=== PATIENT | female | born 1980 | race Caucasian/White ===

== ENCOUNTER 2017-10-28 14:46 | Emergency (ER) | payer BC ==
[2017-10-28 15:24] LABS: #Basophils 0.1 thou/uL (0.0-0.2); #Eosinphils 0.4 thou/uL (0.0-0.7); #Lymphocytes 3.2 thou/uL (1.20-3.40); #Monocytes 0.3 thou/uL (0.11-0.59); #Neutrophils 8.1 thou/uL (1.40-6.50); %Basophils 0.8 % (0.0-1.0); %Eosinophils 3.2 % (0.0-10.0); %Lymphocytes 26.2 % (21.0-51.0); %Monocytes 2.7 % (0.0-10.0); Hemoglobin 13.7 g/dL (12.0-16.0); Mean Corpuscular HGB CONC 33.1 g/dL (32.0-36.0); Mean Corpuscular Hemoglobin 27.5 pg (27.0-31.0); Mean Platelet Volume 6.9 fL (7.4-10.4); Platelet Count 316 thou/uL (130-400); RBC Distribution Width 11.6 % (11.5-14.5); White Blood Cell (WBC) Count 12.1 thou/uL (4.8-10.8)
[2017-10-28 15:39] LABS: ALT (SGPT) 31 U/L (8-55); AST (SGOT) 14 U/L (5-34); Albumin 3.9 g/dL (3.5-5.0); Alkaline Phosphatase 80 U/L (40-150); Anion Gap 12 mmol/L (10-20); BUN (Urea Nitrogen) 11 mg/dL (7.0-18.7); Bilirubin, Total 0.2 mg/dL (0.2-1.2); Calc. Creatinine Clearance 0 mL/min (70-130); Calcium 9.2 mg/dL (7.8-10.44); Carbon Dioxide 26 mmol/L (22-29); Chloride 105 mmol/L (98-107); Estimated GFR-MDRD Greater than 90; Globulin 2.9 g/dL (2.4-3.5); Glucose 142 mg/dL (70-105); Lipase 14 U/L (8-78); Potassium 3.4 mmol/L (3.5-5.1); Protein, Total 6.8 g/dL (6.0-8.3); Sodium 140 mmol/L (136-145)
[2017-10-28 16:40] LABS: Bilirubin Negative (Negative); Blood, Urine Moderate (Negative); Clarity Hazy (Clear); Glucose, Urine (Dipstick) Negative (Negative); Leukocyte Negative (Negative); Nitrite Negative (Negative); Protein, Urine (Dipstick) Negative (Neg-Trace); Specific Gravity, Urine 1.015 (1.005-1.030); Urobilinogen 0.2 mg/dL (0.2-1.0)
[2017-10-28 16:41] LABS: Pregnancy Test - Urine (BHCG) Negative (Negative); Pregu Control Background? CLEAR/WHITE (CLR/WHITE); Pregu Control Bar Appear? YES (CONTROL BAR); Specific Gravity 1.015 (1.002-1.036)
[2017-10-28 16:44] LABS: Bacteria/HPF Rare-Few HPF (None Seen); WBC/HPF None Seen HPF (0-3)
[2017-10-28] MEDS ORDERED: Ketorolac Tromethamine 30 MG/ML VIAL ONE (17:22)
--- NOTE | 2017-10-28 17:40 | CT ---
CT OF ABDOMEN AND PELVIS PERFORMED WITHOUT CONTRAST ENHANCEMENT: 10/28/17 HISTORY: Abdominal pain. COMPARISON: 03/11/16, 02/01/16 studies. The lung bases are clear. The liver and spleen as well as pancreas regions are unremarkable given the limitations of a noncontr ast study. Gallbladder has been removed. Right and left adrenal glands and right and left kidneys are normal in size. There is no significant periaortic or mesenteric adenopathy. CT OF PELVIS PERFORMED WITH CONTRAST ENHANCEMENT: There is sigmoid diverticulosis noted. No inflammatory change. No evidence of adenopathy, mass or armando e fluid. IMPRESSION: No acute abnormalities of the abdomen or pelvis. Sigmoid diverticulosis. POS: [facility]
== END 2017-10-28 17:05 | disposition home or self-care (01) ==
LOC: SCSER 14:46
DX: R10.32 Left lower quadrant pain (principal); E78.5 Hyperlipidemia, unspecified; F41.9 Anxiety disorder, unspecified; F17.210 Nicotine dependence, cigarettes, uncomplicated; Z79.899 Other long term (current) drug therapy; Z79.84 Long term (current) use of oral hypoglycemic drugs
CPT/HCPCS: 74176; 80053; 81003; 81015; 81025; 83690; 85025; 96372; J1885

== ENCOUNTER 2017-12-25 21:44 | Inpatient (IN) | payer BC ==
[2017-12-25 23:07] LABS: Hemoglobin 14.6 g/dL (12.0-16.0); Mean Corpuscular HGB CONC 33.8 g/dL (32.0-36.0); Mean Corpuscular Volume 82.7 fl (81.0-99.0); Mean Platelet Volume 6.8 fL (7.4-10.4); Platelet Count 348 thou/uL (130-400); RBC Distribution Width 11.8 % (11.5-14.5); Red Blood Cell (RBC) Count 5.21 mill/uL (4.20-5.40); White Blood Cell (WBC) Count 11.1 thou/uL (4.8-10.8)
[2017-12-25 23:10] LABS: INR-International Normal Ratio 0.9; Prothrombin Time 12.6 SEC (12.0-14.7)
[2017-12-25 23:11] LABS: BHCG - Serum Negative (NEGATIVE); PTT 27.5 SEC (22.9-36.1); Pregs Control Background? CLEAR/WHITE (CLR/WHITE); Pregs Control Bar Appear? YES (CONTROL BAR)
[2017-12-25 23:15] LABS: Band 3 % (5-11); Eosinophils 3 % (0-10); Lymphocytes 26 % (21-51); MDiff Complete? YES; Monocytes 2 % (0-10); Neutrophil 66 % (42-75)
[2017-12-25 23:20] LABS: ALT (SGPT) 27 U/L (8-55); AST (SGOT) 16 U/L (5-34); Albumin 4.2 g/dL (3.5-5.0); Alkaline Phosphatase 70 U/L (40-150); Anion Gap 15 mmol/L (10-20); BUN (Urea Nitrogen) 8 mg/dL (7.0-18.7); Bilirubin, Total 0.2 mg/dL (0.2-1.2); Calc. Creatinine Clearance 0 mL/min (70-130); Calcium 9.7 mg/dL (7.8-10.44); Carbon Dioxide 24 mmol/L (22-29); Chloride 105 mmol/L (98-107); Estimated GFR-MDRD Greater than 90; Globulin 3.2 g/dL (2.4-3.5); Glucose 111 mg/dL (70-105); Protein, Total 7.4 g/dL (6.0-8.3); Sodium 140 mmol/L (136-145)
[2017-12-26 02:47] VITALS: BMI 39.3
[2017-12-26] MEDS ORDERED: Ondansetron ODT 4 MG TAB SL PRN (03:03)
[2017-12-26] MEDS ORDERED: Ondansetron HCl/PF 4 MG/2 ML Vial IVP PRN (03:03)
[2017-12-26] MEDS ORDERED: Sodium Chloride 0.9% 1,000 ML IV SCH (03:15)
[2017-12-26] MEDS ORDERED: Prevnar 13-Val Conj/PF 0.5 ML SYRINGE IM ONE ×2 (03:15→09:00)
[2017-12-26] MEDS: metroNIDAZOLE 500 MG in Premix Bag 1 BAG IVPB SCH ×2 (03:30→09:12)
[2017-12-26] MEDS: Sodium Chloride 0.9% 1,000 ML IV SCH ×5 (03:45→23:45)
[2017-12-26] MEDS ORDERED: Ondansetron ODT 4 MG TAB PO PRN (03:45)
--- NOTE | 2017-12-26 03:54 | PDOC.FPRHP ---
- History of Present Illness Chief Complaint: Diverticulitis History of Present Illness: 37 yo F w/hx of insulin resistance and previous diverticulitis presents as a direct admit from [facility] ED with concern for diverticulitis. She was seen in the ED for complaint of bloody diarrhea for a period of 4 days with associated abdominal pain. She noted bright red bloody diarrhea on that turned into more formed, but still loose bloody stools on Tuesday - Tuesday. She has had associated cramping abdominal pain since onset of diarrhea. She describes the pain to be RLQ and suprapubic. She denies associated fever or chills. She denies recent travel or change of diet. She states that she has had multiple episodes of diverticulitis in the past and this is similar to before. In [facility] ED she received 1L NS, flagyl, and levaquin - Allergies/Adverse Reactions Allergies Allergy/AdvReac Type Severity Reaction Status Date / Time amoxicillin Allergy Mild Hives Verified 12/26/17 02:47 Penicillins Allergy Mild Hives Verified 12/26/17 02:47 - Home Medications Medication Instructions Recorded Confirmed Type Atorvastatin Calcium [Lipitor] 10 mg PO DAILY 03/12/16 12/26/17 History Cellothyl [Citrucel Tablet] 500 mg PO DAILY 03/12/16 12/26/17 History Lisdexamfetamine Dimesylate 60 mg PO QAM 03/12/16 12/26/17 History [Vyvanse] metFORMIN [Glucophage] 500 mg PO QPM-WM 03/12/16 12/26/17 History Diclofenac Sodium [Voltaren] 50 mg PO BID 12/26/17 12/26/17 History - History PMHx: Hx of diverticulitis Insulin resistance Plantar fasciitis HLD PSHx: Lap genoveva C section x2 FHx: Maternal CVA Social: Denies tobacco, etoh, recreational drug use - Review of Systems General: denies: fever/chills, weight/appetite/sleep changes Eyes: denies: vision changes ENT: denies: nasal congestion Respiratory: denies: cough, congestion, shortness of breath Cardiovascular: denies: chest pain, palpitation Gastrointestinal: reports: nausea, diarrhea, abdominal pain, GI bleeding ( Bloody diarrhea). denies: vomiting Genitourinary: denies: dysuria Skin: denies: rashes Musculoskeletal: denies: pain, tenderness Neurological: denies: numbness, syncope Psychological: denies: anxiety, depression - Vital signs BP: 129/66 HR: 91 RR: 18 Tmax: 99.2 Pox: 97% on RA Wt: 109 kg - Physical Exam Constitutional: NAD, awake, alert and oriented HEENT: normocephalic and atraumatic, EOMI, no scleral icterus Neck: supple, FROM, trachea midline Chest: no-tender to palpation, no lesions Heart: RRR, normal S1/S2, no murmurs/rubs/gallops Lungs: CTAB, no respiratory distress, good air movement Abdomen: soft, bowel sounds present, no masses/distention -Abdomen: TTP RLQ and LLQ, most tender LLQ Musculoskeletal: normal structure, normal tone Neurological: no focal deficit, CN II-XII intact Skin: no rash/lesions, good turgor Heme/Lymphatic: no purpura, no petechia Psychiatric: normal mood and affect FMR H&P: Results - Labs Result Diagrams: 12/25/17 23:00 12/25/17 23:00 Lab results: WBC 11.1 thou/uL (4.8-10.8) H 12/25/17 23:00 Hgb 14.6 g/dL (12.0-16.0) 12/25/17 23:00 Hct 43.1 % (36.0-47.0) 12/25/17 23:00 MCV 82.7 fl (81.0-99.0) 12/25/17 23:00 Plt Count 348 thou/uL (130-400) 12/25/17 23:00 Band Neuts % (Manual) 3 % (5-11) L 12/25/17 23:00 Sodium 140 mmol/L (136-145) 12/25/17 23:00 Potassium 4.0 mmol/L (3.5-5.1) 12/25/17 23:00 Chloride 105 mmol/L (98-107) 12/25/17 23:00 Carbon Dioxide 24 mmol/L (22-29) 12/25/17 23:00 BUN 8 mg/dL (7.0-18.7) 12/25/17 23:00 Creatinine 0.66 mg/dL (0.6-1.1) 12/25/17 23:00 Glucose 111 mg/dL (70-105) H 12/25/17 23:00 Calcium 9.7 mg/dL (7.8-10.44) 12/25/17 23:00 Total Bilirubin 0.2 mg/dL (0.2-1.2) 12/25/17 23:00 AST 16 U/L (5-34) 12/25/17 23:00 ALT 27 U/L (8-55) 12/25/17 23:00 Alkaline Phosphatase 70 U/L (40-150) 12/25/17 23:00 Serum Total Protein 7.4 g/dL (6.0-8.3) 12/25/17 23:00 Albumin 4.2 g/dL (3.5-5.0) 12/25/17 23:00 - Radiology Interpretation CT scan - abdomen Status: pending FMR H&P: A/P - Problem List (1) Acute diverticulitis Current Visit: Yes Status: Acute Priority: High Code(s): K57.92 - DVTRCLI OF INTEST, PART UNSP, W/O PERF OR ABSCESS W/O BLEED (2) Blood in stool Current Visit: Yes Status: Acute Code(s): K92.1 - MELENA (3) Insulin resistance Current Visit: No Status: Chronic Priority: Low Code(s): E88.81 - METABOLIC SYNDROME (4) Hyperlipidemia Current Visit: No Status: Chronic Priority: Medium Code(s): E78.5 - HYPERLIPIDEMIA, UNSPECIFIED Qualifiers: Hyperlipidemia type: unspecified Qualified Code(s): E78.5 - Hyperlipidemia , unspecified - Plan Acute diverticulitis - Most likely cause of bloody stools - Continue levaquin and flagyl - IVF at maintenance rate - Advance diet as tolerated - WBC 11.1 Blood in stool - most likely 2/2 diverticulitis - FOBT, O&P, fecal lactoferrin - Hb 14.6, recheck in am - hold NSAIDs Insulin resistance - low carb diet - continue home metformin HLD - home statin PPx - SCD Code Full Diet Clears, advance as tolerated Dispo: Pt is currently stable. Continue IVF and IV abx until she is able to tolerate PO. Likely length of stay 24-48 hours. FMR H&P: Upper Level - Pertinent history 37 year old white female with a past medical history of diverticulitis presents with rectal bleeding and abdominal cramping. Symptoms started on . She reports periumbilical crampy pain and multiple episodes of diarrhea which eventually progressed to bright red blood per rectum. She now has RLQ and LLQ pain. Other associated symptoms include nausea. Denies fever, chills, vomiting. Tolerating po. She was seen by Dr. Britt at the [facility] ER and directly admitted to [facility]. She received Flagyl, Levaquin, and 1L NS in the ER. - Pertinent findings Vital Signs BP 126/76 HR 93 RR 16 Temp 98.2 O2 sat 92% on room air General: NAD, AAOx4 Eyes: EOMI, PERRLA, nonicteric ENT: MMM. Oropharynx clear CV: RRR. No m/r/g. Pulses full and equal in all 4 extremities. Capillary refill less than 2 seconds Resp: CTA-B. No wheezing, rales, or rhonchi. Nonlabored Abdomen: Tender LLQ and RLQ. Nondistended. No guarding. Ext: No edema. Equal movements bilaterally Skin: No rash or ulcer. No palpable lesions Neuro: CNII-XII intact. No focal deficits Psych: Mood and affect appropriate. Judgement and insight intact. - Plan Date/Time: 12/26/17 9094 I, Chay Dumont DO, have evaluated this patient and agree with findings/plan as outlined by internet marketing strategist resident. Pertinent changes/additions are listed here. A/P: 1) Diverticulitis - Admit to medical floor. Continue IV fluids and antibiotics. Clear liquid diet advance as tolerated 2) DM2 - Home meds 3) HLD - home meds 4) Code status - Full 5) Activity - Ad amaris Attending Addendum - Attending Addendum Date/Time: 12/26/17 1101 I personally evaluated the patient and discussed the management with Tim Trammell, and Mara I agree with the History, Examination, Assessment and Plan documented above with any addition or exceptions noted below. 37 yo female with history of diverticuosis presents with acute diverticulitis Currently pain free. Tolerating clear diet. VS, labs, and imaging reviewed. NAD on exam. RRR. No murmurs. CTA bilaterally. Abdomen soft. No rebound. Mild tenderness to LLQ. BS present. 1. Acute diverticulitis: This is patient's 3rd episode. Continue IV antibiotics throughout the day. If able to tolerate orals with switch tomorrow. Monitor symptoms. CT reviewed. Will need outpatient follow up for c-scope with GI. Kimmie
--- NOTE | 2017-12-26 08:12 | CT ---
PRELIMINARY REPORT/[facility]/EMERGENTY AFTER-HOURS PROCEDURE CT Abdomen and Pelvis Without Intravenous Contrast CLINICAL HISTORY: 37 years old, female; Pain; Abdominal pain; Localized; Right lower quadrant (rlq); Patient HX: Lower abd pain. Multiple episodes of diarrhea with some blood. Hs of genoveva, 2 csxn, diverticulitis, neg ser um preg test. Pt states possible rxn to iv contrast TECHNIQUE: Axial computed tomography images of the abdomen and pelvis without intravenous contrast. All CT scans at this facility use one or more dose reduction techniques, viz.: automated exposure control; ma/kV adjustment per patient size (including targeted exams where dose is matched to indication; i.e. head) ; or iterative reconstruction technique. Coronal reformatted images were created and reviewed. COMPARISON: No relevant prior studies available. FINDINGS: Lung bases: Normal. No mass. No consolidation. ABDOMEN: Liver: Normal. Gallbladder and bile ducts: Gallbladder is surgically absent. Pancreas: Normal. Spleen: Normal. Adrenals: Normal. Kidneys and ureters: Normal. Stomach and bowel: Scattered colonic diverticulosis, with acute diverticulitis involving the distal d escending colon, where there is mild wall thickening and adjacent associated inflammatory stranding. Appendix: Appendix is normal. PELVIS: Bladder: Normal. Reproductive: Normal as visualized. ABDOMEN and PELVIS: Intraperitoneal space: Normal. No free air. No significant fluid collection. Bones/joints: No acute fracture. No dislocation. Soft tissues: Normal. Vasculature: Phleboliths within the pelvis. No abdominal aortic aneurysm. Lymph nodes: Normal. IMPRESSION: 1. Scattered colonic diverticulosis, with acute diverticulitis involving the distal descending colon, where there is mild wall thickening and adjacent associated inflammatory stranding. No evidence of p erforation or abscess. 2. Incidental/non-acute findings are described above. Thank you for allowing us to participate in the care of your patient. Dictated and Authenticated by: Gold Phillip MD 12/26/2017 12:32 AM Central Time ([place] & [place]) FINAL REPORT ABDOMEN CT WITHOUT CONTRAST PELVIC CT WIHTOUT CONTRAST: COMPARISON: 10/28/17. HISTORY: Right lower quadrant tenderness. Pain. Hematochezia. FINDINGS: This report is in agreement with the preliminary report by [facility]. No evidence of obstructed uropathy. Normal-caliber appendix. Mild mucosal thickening with pericolonic at stranding involving the distal descending colon. The possibility of diverticulitis is raised. No evidence of abscess or perforati on. POS: [facility]
[2017-12-26] MEDS ORDERED: HYDROcodone/Acetaminophen 5/325 mg Tablet PO PRN (08:13)
[2017-12-26] MEDS ORDERED: Morphine 4 MG/ML VIAL IV PRN (08:18)
[2017-12-26] MEDS: HYDROcodone/Acetaminophen 5/325 mg Tablet PO PRN ×2 (08:25→15:07)
[2017-12-26] MEDS: Atorvastatin Calcium 10 MG TAB PO SCH (08:49)
[2017-12-26] MEDS: Citrucel 500 MG TAB PO SCH (08:50)
[2017-12-26] MEDS ORDERED: Enoxaparin Sodium 40 MG/0.4 ML SYRINGE SC SCH (09:00)
[2017-12-26] MEDS ORDERED: Lisdexamfetamine Dimesylate [Vyvanse] 60 MG PO SCH (09:00)
[2017-12-26] MEDS ORDERED: metFORMIN 500 MG TAB PO SCH (17:00)
[2017-12-27] MEDS: Sodium Chloride 0.9% 1,000 ML IV SCH (04:42)
[2017-12-27 04:50] LABS: #Eosinphils 0.3 thou/uL (0.0-0.7); #Monocytes 0.6 thou/uL (0.11-0.59); #Neutrophils 5.7 thou/uL (1.40-6.50); %Basophils 0.2 % (0.0-1.0); %Eosinophils 2.8 % (0.0-10.0); %Lymphocytes 31.5 % (21.0-51.0); %Monocytes 5.9 % (0.0-10.0); %Neutrophils 59.6 % (42.0-75.0); Hemoglobin 12.6 g/dL (12.0-16.0); Mean Corpuscular Hemoglobin 28.8 pg (27.0-31.0); Mean Corpuscular Volume 84.6 fl (81.0-99.0); Mean Platelet Volume 6.8 fL (7.4-10.4); Platelet Count 286 thou/uL (130-400); RBC Distribution Width 11.7 % (11.5-14.5); Red Blood Cell (RBC) Count 4.37 mill/uL (4.20-5.40); White Blood Cell (WBC) Count 9.6 thou/uL (4.8-10.8)
[2017-12-27 05:05] LABS: Anion Gap 8 mmol/L (10-20); BUN (Urea Nitrogen) 8 mg/dL (7.0-18.7); Calc. Creatinine Clearance 215 mL/min (70-130); Calcium 8.8 mg/dL (7.8-10.44); Carbon Dioxide 26 mmol/L (22-29); Chloride 108 mmol/L (98-107); Estimated GFR-MDRD Greater than 90; Glucose 95 mg/dL (70-105); Potassium 3.9 mmol/L (3.5-5.1); Sodium 138 mmol/L (136-145)
[2017-12-27 07:44] VITALS: BP 114/77; TEMP 98.6
[2017-12-27] MEDS: Citrucel 500 MG TAB PO SCH (07:57)
[2017-12-27] MEDS: Atorvastatin Calcium 10 MG TAB PO SCH (07:57)
--- NOTE | 2017-12-27 10:25 | PDOC.FM ---
- Subjective Subjective: NELL overnight, tolerating fulls. Pain controlled on PO norco. No new complaints. - Objective MAR Reviewed: Yes Vital Signs & Weight: Vital Signs (12 hours) Temp Pulse Resp BP Pulse Ox 12/27/17 07:43 98.6 F 75 16 114/77 96 12/27/17 07:00 98.7 F 80 16 12/27/17 00:00 98.7 F 80 16 111/78 93 L Weight Admit Weight 114.022 kg Weight 114.022 kg I&O: 12/26/17 12/27/17 12/28/17 06:59 06:59 06:59 Intake Total 100 1650 Balance 100 1650 Result Diagrams: 12/27/17 04:35 12/27/17 04:35 <Bharat Terry - Last Filed: 12/27/17 10:19> - Objective Vital Signs & Weight: Weight Admit Weight 114.022 kg Weight 114.022 kg I&O: 12/26/17 12/27/17 12/28/17 06:59 06:59 06:59 Intake Total 100 1650 Balance 100 1650 Result Diagrams: 12/27/17 04:35 12/27/17 04:35 <Alan Zapata - Last Filed: 12/27/17 23:15> Phys Exam - Physical Examination Constitutional: NAD HEENT: PERRLA, moist MMs Neck: no nodes, no JVD Respiratory: no wheezing, clear to auscultation bilateral Cardiovascular: RRR, no significant murmur Gastrointestinal: soft, no distention, positive bowel sounds mild TTP LLQ Musculoskeletal: no edema, pulses present Neurological: moves all 4 limbs Lymphatic: no nodes <Bharat Terry - Last Filed: 12/27/17 10:19> Dx/Plan (1) Acute diverticulitis Code(s): K57.92 - DVTRCLI OF INTEST, PART UNSP, W/O PERF OR ABSCESS W/O BLEED Status: Acute Plan: Pt tolerating PO w/ pain controlled on PO meds Will transition to PO abx Plan for d/c home w/ PCP follow-up by end of week (2) Hyperlipidemia Code(s): E78.5 - HYPERLIPIDEMIA, UNSPECIFIED Status: Chronic QualifierTitle: Hyperlipidemia type: unspecified Qualified Code(s): E78.5 - Hyperlipidemia, unspecified Plan: COnt. w/ home medications (3) Insulin resistance Code(s): E88.81 - METABOLIC SYNDROME Status: Chronic Plan: Cont. w/ home medications stable <Bharat Terry - Last Filed: 12/27/17 10:19> Attending Addendum - Attending Addendum Date/Time: 12/27/17 4273 I personally evaluated the patient and discussed the management with Dr. Dexter Terry. I agree with the History, Examination, Assessment and Plan documented above with any addition or exceptions noted below. She feels better with less pain this a.m. Afebrile VS Stable/normal. Lungs: CTA , Cor: RRR. Abdomen: soft, BS hypoactive, mild voluntary guarding and mild tenderness to deep palpation in RUQ and lower abdomen. A: Acute Diverticulitis improved. P: Home on Levaquin and Flagyl is she remains stable or improved after lunch. And follow up with PCP Dr. Rendon. MD Santosh <Alan Zapata - Last Filed: 12/27/17 23:15>
[2017-12-27] MEDS: HYDROcodone/Acetaminophen 5/325 mg Tablet PO PRN (11:40)
--- NOTE | 2017-12-27 19:53 | DIS-2 ---
DATE OF ADMISSION: 12/26/2017 DATE OF DISCHARGE: 12/27/2017 ADMITTING ATTENDING: Dr. Jerez. DISCHARGE ATTENDING: Dr. Zapata. RESIDENT: Bharat Terry M.D. CONSULTATIONS: None. PROCEDURES: None. IMAGING: CT abdomen and pelvis without contrast showing no evidence of obstructive uropathy, normal caliber appendix, mild mucosal thickening with pericolonic fat stranding involving the distal descend ing colon without evidence of abscess or perforation. PRIMARY DIAGNOSIS: Acute diverticulitis. SECONDARY DIAGNOSES: 1. Type 2 diabetes mellitus. 2. Hyperlipidemia. DISCHARGE MEDICATIONS: 1. Levaquin 750 mg p.o. daily. 2. Flagyl 500 mg p.o. q.6 hours. 3. Phelps 5/325 one tab p.o. q.4 hours as needed for pain. 4. Cellothyl 500 mg p.o. daily. 5. Lipitor 10 mg p.o. daily. 6. Metformin 500 mg p.o. q.p.m. with meals. 7. Diclofenac 50 mg p.o. b.i.d. 8. Vyvanse 60 mg p.o. q.a.m. DISCONTINUED MEDICATIONS: None. HISTORY OF PRESENT ILLNESS: The patient is a 37-year-old female with 2 prior episodes of diverticuli tis, who presented to the [facility] for evaluation of abdominal pain and blood in her stool. Patient reportedly with pain on Tuesday with episodes of hematemesis which was self-resolved without a normal stool before returning on Tuesday with worsening abdominal pain. Patient does have 2 prior episodes of diverticulitis which she felt this might be a flare up. The patient has been able tolera te p.o. intake without issue. Patient was seen at [facility] ER where CT abdomen and pelv is was obtained concerning for diverticulitis in the distal portion of the descending colon. The pat ient was direct admitted to [facility] for further evaluation and management. The patient w as started on IV fluids and IV Levaquin and Flagyl in addition to p.o. and IV pain medications. Sinc e patient was able to tolerate liquids, she was kept on a clear liquid diet during this time. Patien t's pain improved the following day and she was tolerating fulls without issue. Patient's pain was c ontrolled on p.o. Phelps and was able to tolerate p.o. antibiotics. Since patient was improved with p ain controlled and able tolerate p.o., it was felt she was stable for discharge home. The patient is to follow up with her primary care provider before the end of week to monitor for resolution. DISPOSITION: Stable. DISCHARGE INSTRUCTIONS: 1. Location: Home. 2. Follow up with primary care provider, Dr. Rendon in 3-4 days. 3. Activity: As tolerated. 4. Diet: Fulls, advance as tolerated.
== END 2017-12-27 14:13 | disposition home or self-care (01) | DRG 379 ==
LOC: SCSER 21:44 → T4-B 12-26 02:40 → OBSVTOIN 12-26 02:40
PROVIDERS: ADMIT Emergency Medicine; ATTEND Emergency Medicine
DX: K57.33 Diverticulitis of large intestine without perforation or abscess with bleeding (principal); E88.81 Metabolic syndrome and other insulin resistance; E78.5 Hyperlipidemia, unspecified; Z79.84 Long term (current) use of oral hypoglycemic drugs; E11.9 Type 2 diabetes mellitus without complications
CPT/HCPCS: 36415; 74176; 80048; 80053; 82274; 83630; 84703; 85025; 85610; 85730; 87328; 87329; 96361; 96365; 99406; A4216; J1956

== ENCOUNTER 2018-08-20 21:06 | Emergency (ER) | payer BC ==
[2018-08-20] MEDS ORDERED: methylPREDNISolone Sod Succ/PF 125 MG/2 ML VIAL ONE (21:43)
[2018-08-20 22:12] LABS: #Basophils 0.1 thou/uL (0.0-0.2); #Eosinphils 0.3 thou/uL (0.0-0.7); #Lymphocytes 1.9 thou/uL (1.20-3.40); #Monocytes 0.5 thou/uL (0.11-0.59); #Neutrophils 6.4 thou/uL (1.40-6.50); %Basophils 1.2 % (0.0-1.0); %Eosinophils 2.7 % (0.0-10.0); %Lymphocytes 20.4 % (21.0-51.0); %Monocytes 5.3 % (0.0-10.0); %Neutrophils 70.5 % (42.0-75.0); Hemoglobin 13.5 g/dL (12.0-16.0); Mean Corpuscular HGB CONC 33.7 g/dL (32.0-36.0); Mean Corpuscular Hemoglobin 26.9 pg (27.0-31.0); Mean Platelet Volume 7.7 fL (7.4-10.4); Platelet Count 273 thou/uL (130-400); RBC Distribution Width 11.4 % (11.5-14.5); Red Blood Cell (RBC) Count 5.02 mill/uL (4.20-5.40); White Blood Cell (WBC) Count 9.1 thou/uL (4.8-10.8)
[2018-08-20 22:15] LABS: BHCG - Serum Negative (NEGATIVE); Pregs Control Background? CLEAR/WHITE (CLR/WHITE); Pregs Control Bar Appear? YES (CONTROL BAR)
[2018-08-20 22:19] LABS: ALT (SGPT) 16 U/L (8-55); AST (SGOT) 12 U/L (5-34); Albumin 3.9 g/dL (3.5-5.0); Alkaline Phosphatase 57 U/L (40-150); Anion Gap 11 mmol/L (10-20); BUN (Urea Nitrogen) 7 mg/dL (7.0-18.7); Bilirubin, Total 0.2 mg/dL (0.2-1.2); Calc. Creatinine Clearance 0 mL/min (70-130); Calcium 9.4 mg/dL (7.8-10.44); Carbon Dioxide 25 mmol/L (22-29); Chloride 108 mmol/L (98-107); Estimated GFR-MDRD Greater than 90; Globulin 2.8 g/dL (2.4-3.5); Glucose 135 mg/dL (70-105); Potassium 3.8 mmol/L (3.5-5.1); Protein, Total 6.7 g/dL (6.0-8.3); Sodium 140 mmol/L (136-145)
--- NOTE | 2018-08-20 22:56 | RAD ---
SINGLE VIEW OF THE CHEST: Comparison: None. History: Cough for three days. This cough is blood tinged. FINDINGS: Single view of the chest shows a normal sized cardiomediastinal silhouette. There is no evidence of c onsolidation, mass, or pleural effusion. The bones are unremarkable. IMPRESSION: No evidence of acute cardiopulmonary disease. POS: [facility]
== END 2018-08-20 22:45 | disposition home or self-care (01) ==
LOC: SCSER 21:06
DX: J20.9 Acute bronchitis, unspecified (principal); R04.2 Hemoptysis; E11.9 Type 2 diabetes mellitus without complications; E78.5 Hyperlipidemia, unspecified; F41.9 Anxiety disorder, unspecified; Z79.84 Long term (current) use of oral hypoglycemic drugs; Z79.899 Other long term (current) drug therapy
CPT/HCPCS: 71045; 80053; 84703; 85025; 85379; 93005; 96361; 96374; J2930; J7620

== ENCOUNTER 2018-10-09 15:10 | Outpatient (CLI) | payer BC ==
--- NOTE | 2018-10-09 18:02 | RAD ---
LEFT LEG TWO VIEWS: INDICATIONS: Fall with injury. Ecchymosis and pain. FINDINGS: There is no fracture or dislocation of the tibia or fibula of the left leg. No radiopaque foreign viola dy is seen. There is soft tissue prominence. Correlate clinically. IMPRESSION: No acute osseous abnormality of the left leg. POS: [facility]
== END 2018-10-09 15:11 | disposition home or self-care (01) ==
LOC: SCSRAD 15:10
PROVIDERS: ATTEND Family Medicine
DX: M79.605 Pain in left leg (principal)

== ENCOUNTER 2020-11-20 15:07 | Outpatient (CLI) | payer BC | END 2020-11-20 15:08 | disposition home or self-care (01) | LOC: DTY/OP 15:07 | PROVIDERS: ATTEND Surgery | DX: E66.01 Morbid (severe) obesity due to excess calories (principal) | CPT/HCPCS: 97802 ==

== ENCOUNTER 2021-01-07 14:53 | Outpatient (CLI) | payer BC ==
[2021-01-07 16:17] LABS: #Eosinphils 0.1 10x3/uL (0.0-0.5); #Monocytes 0.5 10x3/uL (0.0-1.1); #Neutrophils 6.6 10x3/uL (1.5-8.4); %Basophils 0.4 % (0.0-2.0); %Eosinophils 1.2 % (0.0-6.0); %Lymphocytes 31.7 % (18.0-47.0); %Monocytes 4.7 % (0.0-10.0); %Neutrophils 61.7 % (40.0-75.0); Hemoglobin 12.9 g/dL (12.0-15.5); Mean Corpuscular HGB CONC 31.9 g/dL (32.0-36.0); Mean Corpuscular Hemoglobin 25.9 pg (27.0-33.0); Mean Corpuscular Volume 81.1 fl (81.6-98.3); Mean Platelet Volume 10.1 fl (7.4-10.4); Platelet Count 400 10x3/uL (150-450); RBC Distribution Width 14.2 % (11.5-14.5); Red Blood Cell (RBC) Count 4.98 10x6/uL (3.90-5.03); White Blood Cell (WBC) Count 10.7 10x3/uL (3.5-10.5)
[2021-01-07 16:44] LABS: ALT (SGPT) 33 U/L (8-55); AST (SGOT) 21 U/L (5-34); Albumin 4.5 g/dL (3.5-5.0); Alkaline Phosphatase 73 U/L (40-110); Anion Gap 14 mmol/L (10-20); BUN (Urea Nitrogen) 17 mg/dL (7.0-18.7); Bilirubin, Total 0.4 mg/dL (0.2-1.2); Calc. Creatinine Clearance 0 mL/min (70-130); Calcium 9.9 mg/dL (7.8-10.44); Carbon Dioxide 24 mmol/L (22-29); Chloride 104 mmol/L (98-107); Globulin 2.9 g/dL (2.4-3.5); Glucose 94 mg/dL (70-105); Potassium 4.3 mmol/L (3.5-5.1); Protein, Total 7.4 g/dL (6.0-8.3); Sodium 138 mmol/L (136-145)
[2021-01-07 21:15] LABS: Hemoglobin A1c 6.2 % (4.0-6.0)
[2021-01-08 02:31] LABS: SARS-CoV-2 PCR by NAA Not Detected (NotDetected)
== END 2021-01-07 14:54 | disposition home or self-care (01) ==
LOC: LABBT 14:53
PROVIDERS: ATTEND Surgery
DX: Z01.818 Encounter for other preprocedural examination (principal); E66.01 Morbid (severe) obesity due to excess calories; Z20.822 Contact with and (suspected) exposure to COVID-19
CPT/HCPCS: 71046; 80053; 83036; 85025; 87635; 93005; 93010; U0003; U0005

== ENCOUNTER 2021-01-07 15:00 | Inpatient (IN) | payer BC ==
[2021-01-09 13:00] VITALS: BMI 41.5
[2021-01-12] MEDS ORDERED: Levofloxacin 500 mg/D5W 100 ml Premix Bag ONE (09:39)
[2021-01-12 10:07] LABS: BHCG - Serum Negative (NEGATIVE); Pregs Control Background? CLEAR/WHITE (CLR/WHITE); Pregs Control Bar Appear? YES (CONTROL BAR)
[2021-01-12] MEDS ORDERED: Lidocaine 1% w/Epinephrine 1:100K 20 ML VIAL ONE (10:47)
[2021-01-12] MEDS ORDERED: Bupivacaine 0.25% HCL 30 ML VIAL ONE (10:47)
[2021-01-12] MEDS ORDERED: Fentanyl 100 MCG/2 ML VIAL ONE ×2 (11:06→13:34)
[2021-01-12] MEDS ORDERED: Ondansetron PF 4 MG/2 ML Vial ONE (11:53)
[2021-01-12] MEDS ORDERED: PROPOFOL 200 MG/20 ML VIAL ONE (11:53)
[2021-01-12] MEDS ORDERED: diphenhydrAMINE 50 MG/ML VIAL ONE (11:53)
[2021-01-12] MEDS ORDERED: Rocuronium Bromide 10 MG/ML (10ML VIAL) ONE (11:53)
[2021-01-12] MEDS ORDERED: Succinylcholine 200 MG/10 ml SYRINGE FS ONE (11:53)
[2021-01-12] MEDS ORDERED: Ketorolac Tromethamine 30 MG/ML VIAL ONE (11:53)
[2021-01-12] MEDS ORDERED: Dexamethasone 20 MG/5 ML VIAL ONE (11:53)
[2021-01-12] MEDS ORDERED: Glycopyrrolate 0.2 MG/ML 5 ML SYRINGE ONE (11:53)
[2021-01-12] MEDS ORDERED: Fentanyl 250 MCG/5 ML VIAL ONE (12:28)
[2021-01-12] MEDS ORDERED: Promethazine HCl 25 MG/ML VIAL SLOW IVP PRN (13:28)
[2021-01-12] MEDS ORDERED: Promethazine HCl 25 MG/ML VIAL IM PRN ×3 (13:28→16:58)
[2021-01-12] MEDS ORDERED: Meperidine HCl/PF 25 MG/ML VIAL SLOW IVP PRN ×2 (13:28)
[2021-01-12] MEDS ORDERED: Ondansetron HCl/PF 4 MG/2 ML Vial IVP PRN (13:28)
[2021-01-12] MEDS ORDERED: HYDROmorphone 2 MG/ML VIAL SLOW IVP PRN (13:28)
[2021-01-12] MEDS ORDERED: Ondansetron PF 4 MG/2 ML Vial IVP PRN ×2 (13:29→16:58)
[2021-01-12] MEDS ORDERED: Naloxone HCl 0.4 mg/ml Vial IV PRN (13:29)
[2021-01-12] MEDS ORDERED: diphenhydrAMINE 25 MG CAP PO PRN (13:29)
[2021-01-12] MEDS ORDERED: fentaNYL Citrate/PF 2,000 MCG in Sodium Chloride 0.9% 60 ML IV PRN (13:29)
[2021-01-12] MEDS ORDERED: diphenhydrAMINE 50 MG/ML VIAL IM PRN (13:29)
[2021-01-12] MEDS ORDERED: Zolpidem Tartrate 5 MG TAB PO PRN (13:29)
[2021-01-12] MEDS ORDERED: diphenhydrAMINE 50 MG/ML VIAL IVP PRN ×2 (13:29→16:58)
[2021-01-12] MEDS ORDERED: Communication Order-Pharmacy FS SCH (13:30)
[2021-01-12] MEDS ORDERED: HYDROmorphone 2 MG/ML VIAL ONE (13:33)
[2021-01-12] MEDS ORDERED: Meperidine HCl/PF 25 MG/ML VIAL ONE (13:33)
[2021-01-12] MEDS ORDERED: Promethazine HCl 25 MG/ML VIAL ONE (13:39)
[2021-01-12] MEDS ORDERED: D5 1/2 NS w/20 mEq KCL 1,000 ML ONE (14:11)
[2021-01-12] MEDS ORDERED: HumaLOG 300 UNITS/3 ML VIAL SC PRN (16:58)
[2021-01-12] MEDS ORDERED: hydrALAZINE 20 MG/ML VIAL SLOW IVP PRN (16:58)
[2021-01-12] MEDS ORDERED: Dextrose 50% Abboject 50 ML SYRINGE SLOW IVP PRN ×2 (16:58)
[2021-01-12] MEDS ORDERED: Dextrose 5% in Water 1,000 ML IV PRN (16:58)
[2021-01-12] MEDS: Sodium Chloride 0.9% 1,000 ML IV SCH (17:59)
[2021-01-12] MEDS: D5 1/2 NS w/20 mEq KCL 1,000 ML IV SCH ×2 (17:59→22:50)
[2021-01-12] MEDS ORDERED: Enoxaparin Sodium 40 MG/0.4 ML SYRINGE SC SCH (21:00)
[2021-01-13] MEDS: D5 1/2 NS w/20 mEq KCL 1,000 ML IV SCH (00:07)
[2021-01-13] MEDS: Sodium Chloride 0.9% 1,000 ML IV SCH ×2 (00:07→09:28)
[2021-01-13 06:22] LABS: #Lymphocytes 2.9 thou/uL (1.20-3.40); #Monocytes 0.7 thou/uL (0.11-0.59); #Neutrophils 10.6 thou/uL (1.40-6.50); %Basophils 0.2 % (0.0-1.0); %Eosinophils 0.1 % (0.0-10.0); %Lymphocytes 20.6 % (21.0-51.0); %Monocytes 4.7 % (0.0-10.0); %Neutrophils 74.4 % (42.0-75.0); Hemoglobin 12.1 g/dL (12.0-16.0); Mean Corpuscular HGB CONC 33.7 g/dL (32.0-36.0); Mean Corpuscular Hemoglobin 27.3 pg (27.0-31.0); Mean Platelet Volume 7.8 fL (7.4-10.4); Platelet Count 330 thou/uL (130-400); RBC Distribution Width 13.2 % (11.5-14.5); Red Blood Cell (RBC) Count 4.41 mill/uL (4.20-5.40); White Blood Cell (WBC) Count 14.3 thou/uL (4.8-10.8)
[2021-01-13 06:40] LABS: Anion Gap 13 mmol/L (10-20); BUN (Urea Nitrogen) 9 mg/dL (7.0-18.7); Calc. Creatinine Clearance 214 mL/min (70-130); Calcium 9.1 mg/dL (7.8-10.44); Carbon Dioxide 22 mmol/L (22-29); Chloride 106 mmol/L (98-107); Glucose 121 mg/dL (70-105); Potassium 3.9 mmol/L (3.5-5.1); Sodium 137 mmol/L (136-145)
[2021-01-13 07:55] VITALS: BP 149/89; TEMP 97.8
[2021-01-13] MEDS ORDERED: Pantoprazole 40 MG VIAL IVP SCH (09:00)
[2021-01-13] MEDS: Hydrocodone-Acetamin 15 ML UDCUP PO PRN ×2 (09:26→13:52)
== END 2021-01-13 14:48 | disposition home or self-care (01) | DRG 621 ==
LOC: SURG A 01-12 09:16 → EDSTATUS 01-12 15:00 → SJJU 01-12 16:56
PROVIDERS: ADMIT Surgery; ATTEND Surgery
PROC: 0DB64Z3 Excision of Stomach, Percutaneous Endoscopic Approach, Vertical (ICD-10-PCS; principal; 2021-01-12)
PROC: 0BQT4ZZ Repair Diaphragm, Percutaneous Endoscopic Approach (ICD-10-PCS; 2021-01-12)
DX: E66.01 Morbid (severe) obesity due to excess calories (principal); E78.00 Pure hypercholesterolemia, unspecified; K44.9 Diaphragmatic hernia without obstruction or gangrene; Z68.41 Body mass index [BMI] 40.0-44.9, adult
CPT/HCPCS: 36415; 36416; 80048; 84703; 85025; 88307; C9113; J1100; J1170; J1200; J1650; J1815; J1885; J1956; J2175; J2405; J2550; J2704; J3010; J3480; S0020

== ENCOUNTER 2021-01-18 15:55 | Emergency (ER) | payer BC ==
[2021-01-18] MEDS ORDERED: Fleet Enema 133 ML BOT PR SCH (17:30)
== END 2021-01-18 19:10 | disposition home or self-care (01) ==
LOC: ERS 15:55
DX: K56.41 Fecal impaction (principal); E11.9 Type 2 diabetes mellitus without complications; E78.5 Hyperlipidemia, unspecified; E78.00 Pure hypercholesterolemia, unspecified; Z79.899 Other long term (current) drug therapy
CPT/HCPCS: 99283